=== PATIENT | male | born 1970 | race American Indian/Alaskan Native ===

== ENCOUNTER 2020-10-23 10:56 | Emergency (ER) | payer BC ==
[2020-10-23] MEDS ORDERED: FAMOTIDINE 20 MG TAB PO ONE (11:18)
[2020-10-23] MEDS ORDERED: DICYCLOMINE 20 MG/2 ML INJ IM ONE (11:18)
--- NOTE | 2020-10-23 11:40 | XRay Report ---
CHEST 1 VIEW 10/23/2020 10:33 AM INDICATION / CLINICAL INFORMATION: chest pain. COMPARISON: None available. FINDINGS: SUPPORT DEVICES: None. HEART / MEDIASTINUM: No significant abnormality. LUNGS / PLEURA: No significant pulmonary or pleural abnormality. No pneumothorax. ADDITIONAL FINDINGS: No significant additional findings. IMPRESSION: No acute cardiopulmonary abnormality. Signer Name: Shine Sorto MD Signed: 10/23/2020 11:35 AM Workstation Name: [id number]
--- NOTE | 2020-10-23 11:51 | Emergency Department Report ---
ED Chest Pain HPI - General Chief Complaint: Chest Pain Stated Complaint: CHEST DISCOMFORT Time Seen by Provider: 10/23/20 11:14 Source: patient Mode of arrival: Ambulatory Limitations: No Limitations - History of Present Illness Initial Comments: Patient is a 50-year-old F English male who has had approximately 5 to 6 weeks of off-and-on chest discomfort. States it starts in the epigastrium and radiates into the center chest. States is accompanied with belching. States is a full type sensation. States he had at this morning was urged to come to the hospital to get checked out. Denies any shortness of breath cough cold congestion fevers chills nausea vomiting. There is no exertional component. Patient has no pleurisy. - Related Data Previous Rx's Medication Instructions Recorded Last Taken Type metFORMIN [Glucophage] 500 mg PO BID #60 tablet 12/10/14 Unknown Rx Dicyclomine [Bentyl] 20 mg PO QID #10 tablet 10/23/20 Unknown Rx Pantoprazole [Protonix] 40 mg PO QDAY #30 tablet 10/23/20 Unknown Rx Allergies Allergy/AdvReac Type Severity Reaction Status Date / Time penicillin G Allergy Hives Verified 10/23/20 11:00 Heart Score - HEART Score History: Slightly suspicious EKG: Normal Age: 45-65 Risk factors: No known risk factors Troponin: < normal limit HEART Score: 1 ED Review of Systems ROS: Stated complaint: CHEST DISCOMFORT Other details as noted in HPI Comment: All other systems reviewed and negative ED Past Medical Hx - Past Medical History Hx Hypertension: Yes Hx Diabetes: Yes - Surgical History Past Surgical History?: Yes Additional Surgical History: TONSILS - Social History Smoking Status: Never Smoker Substance Use Type: None - Medications Home Medications: Home Medications Medication Instructions Recorded Confirmed Last Taken Type metFORMIN [Glucophage] 500 mg PO BID #60 tablet 12/10/14 Unknown Rx Dicyclomine [Bentyl] 20 mg PO QID #10 tablet 10/23/20 Unknown Rx Pantoprazole [Protonix] 40 mg PO QDAY #30 tablet 10/23/20 Unknown Rx ED Physical Exam - General Limitations: No Limitations General appearance: alert, in no apparent distress - Head Head exam: Present: atraumatic, normocephalic - Eye Eye exam: Present: normal appearance, PERRL, EOMI - ENT ENT exam: Present: mucous membranes moist - Neck Neck exam: Present: normal inspection - Respiratory Respiratory exam: Present: normal lung sounds bilaterally. Absent: respiratory distress, wheezes, rales, rhonchi - Cardiovascular Cardiovascular Exam: Present: regular rate, normal rhythm, normal heart sounds. Absent: systolic murmur, diastolic murmur, rubs, gallop - GI/Abdominal GI/Abdominal exam: Present: soft, normal bowel sounds. Absent: distended, tenderness, guarding, rebound - Rectal Rectal exam: Present: deferred - Extremities Exam Extremities exam: Present: normal inspection - Back Exam Back exam: Present: normal inspection - Neurological Exam Neurological exam: Present: alert, oriented X3 - Psychiatric Psychiatric exam: Present: normal affect, normal mood - Skin Skin exam: Present: warm, dry, intact, normal color. Absent: rash ED Course Vital Signs 10/23/20 10/23/20 10/23/20 11:00 12:00 12:16 Temperature 98.8 F Pulse Rate 107 H 75 78 Respiratory 18 23 14 Rate Blood Pressure 127/86 129/90 129/87 O2 Sat by Pulse 99 100 99 Oximetry ED Medical Decision Making - Lab Data Result diagrams: 10/23/20 11:32 10/23/20 11:32 Lab Results 10/23/20 10/23/20 10/23/20 Range/Units 11:32 11:32 11:32 WBC 7.3 (4.5-11.0) K/mm3 RBC 4.71 (3.65-5.03) M/mm3 Hgb 12.7 (11.8-15.2) gm/dl Hct 37.3 (35.5-45.6) % MCV 79 L (84-94) fl MCH 27 L (28-32) pg MCHC 34 (32-34) % RDW 15.5 H (13.2-15.2) % Plt Count 172 (140-440) K/mm3 Lymph % (Auto) 35.0 (13.4-35.0) % [place] % (Auto) 8.4 H (0.0-7.3) % Eos % (Auto) 1.2 (0.0-4.3) % Baso % (Auto) [place] Lymph # (Auto) 2.5 (1.2-5.4) K/mm3 [place] # (Auto) 0.6 (0.0-0.8) K/mm3 Eos # (Auto) 0.1 (0.0-0.4) K/mm3 Baso # (Auto) 0.1 (0.0-0.1) K/mm3 Seg Neutrophils % 54.6 (40.0-70.0) % Seg Neutrophils # 4.0 (1.8-7.7) K/mm3 Sodium 135 L (137-145) mmol/L Potassium 4.2 (3.6-5.0) mmol/L Chloride 103.0 (98-107) mmol/L Carbon Dioxide 26 (22-30) mmol/L Anion Gap 10 mmol/L BUN 12 (9-20) mg/dL Creatinine 0.9 (0.8-1.3) mg/dL Estimated GFR > 60 ml/min BUN/Creatinine Ratio 13 % Glucose 210 H (75-100) mg/dL Calcium 8.5 (8.4-10.2) mg/dL Troponin T < 0.010 (0.00-0.029) ng/mL - EKG Data -: EKG Interpreted by [facility] EKG shows normal: sinus rhythm, axis, intervals, QRS complexes, ST-T waves Rate: normal - EKG Data Interpretation: normal EKG (Except for occasional PAC) - Radiology Data [facility] [address] [place] [address] XRay Report Signed Patient: GINO BISWAS MR#: [id number] : 1970 Acct:[id number] Age/Sex: 50 / M ADM Date: 10/23/20 Loc: ED Attending Dr: Ordering Physician: ROMAN WASHINGTON MD Date of Service: 10/23/20 Procedure(s): XR chest 1V ap Accession Number(s): [id number] cc: ROMAN WASHINGTON MD Fluoro Time In Minutes: CHEST 1 VIEW 10/23/2020 10:33 AM INDICATION / CLINICAL INFORMATION: chest pain. COMPARISON: None available. FINDINGS: SUPPORT DEVICES: None. HEART / MEDIASTINUM: No significant abnormality. LUNGS / PLEURA: No significant pulmonary or pleural abnormality. No pneumothorax. ADDITIONAL FINDINGS: No significant additional findings. IMPRESSION: No acute cardiopulmonary abnormality. Signer Name: Marianna Sorto MD Signed: 10/23/2020 11:35 AM Workstation Name: [id number] Transcribed By: ANYA Dictated By: MARIANNA SORTO Electronically Authenticated By: MARIANNA SORTO Signed Date/Time: 10/23/20 2495 - Medical Decision Making Patient symptoms likely GERD related. Patient is troponin is negative EKG is within normal limits. Patient will be given outpatient follow-up with [facility] will be discharged home with medication for symptomatic relief. Patient is diabetic is on Metformin which also could be because of the patient's symptoms as well. Critical care attestation.: If time is entered above; I have spent that time in minutes in the direct care of this critically ill patient, excluding procedure time. ED Disposition Clinical Impression: Atypical chest pain, GERD (gastroesophageal reflux disease) Disposition: DC-01 TO HOME OR SELFCARE Is pt being admited?: No Does the pt Need Aspirin: No Condition: Stable Instructions: Nonspecific Chest Pain, Adult, Food Choices for Gastroesophageal Reflux Disease, Adult, [id number], Gastroesophageal Reflux Disease, Adult, [id number] Time of Disposition: 12:42
[2020-10-23 12:09] LABS: BUN/Creatinine Ratio 13; Blood Urea Nitrogen 12 mg/dL (9-20); Calcium 8.5 mg/dL (8.4-10.2); Hemolysis Index 6
[2020-10-23 12:29] VITALS: BP 129/87
[2020-10-23 12:31] LABS: Basophils # (Auto) 0.1 K/mm3 (0.0-0.1); Eosinophils # (Auto) 0.1 K/mm3 (0.0-0.4); Eosinophils % (Auto) 1.2 % (0.0-4.3); Hematocrit 37.3 % (35.5-45.6); Hemoglobin 12.7 gm/dl (11.8-15.2); Lymphocytes # (Auto) 2.5 K/mm3 (1.2-5.4); Mean Corpuscular HGB Conc 34 % (32-34); Mean Corpuscular Volume 79 fl (84-94); Monocytes # (Auto) 0.6 K/mm3 (0.0-0.8); Monocytes % (Auto) 8.4 % (0.0-7.3); Platelet Count 172 K/mm3 (140-440); Red Blood Count 4.71 M/mm3 (3.65-5.03); Red Cell Distribution Width 15.5 % (13.2-15.2)
--- NOTE | 2020-10-26 10:54 | Electrocardiograph Report ---
[facility] Test Date: 2020-10-23 Test Time: 11:10:11 Pat Name: GINO BISWAS Department: Room: Gender: M [employer]: : 1970 Requested By: ROMAN WASHINGTON Order Number: [id number] Reading MD: Darvin Pearce Measurements Intervals [place] Rate: 81 P: 34 [place]: 182 QRS: -7 QRSD: 102 T: 21 QT: 368 QTc: 418 Interpretive Statements Sinus rhythm Atrial premature complex No previous ECG available for comparison Electronically Signed On 10-26-2020 7:54:21 PDT by Darvin Pearce
== END 2020-10-23 13:14 | disposition home or self-care (01) ==
LOC: ED 10:56
DX: R07.89 Other chest pain (principal); K21.9 Gastro-esophageal reflux disease without esophagitis; I10 Essential (primary) hypertension; E11.9 Type 2 diabetes mellitus without complications; Z79.899 Other long term (current) drug therapy; Z88.0 Allergy status to penicillin
CPT/HCPCS: 36415; 71045; 80048; 84484; 85025; 93005; 96372; 99284; J0500